=== PATIENT | male | born 1965 | race Caucasian/White ===

== ENCOUNTER 2024-04-14 09:19 | Emergency (ER) | payer MEDICAID, SELFPAY ==
[2024-04-14 10:05] VITALS: BP 159/89; PULSE 101; RESP 20; TEMP 38.3; O2SAT 96; BMI 24.5
--- NOTE | 2024-04-14 10:24 | EKG_ITS ---
[facility] Test Date: 2024-04-14 Pat Name: RENU MESSINA Department: Room: - Gender: Male [employer] Psychiatrist: : [id number] Requested By: Louise Fuchs ([facility]) [place] Order Number: [id number] Reading MD: Louise Fuchs ([facility]) [place] Measurements Intervals [place] Rate: 100 P: 80 TX: 85 QRS: 230 QRSD: 216 T: 66 QT: 447 QTc: 577 Interpretive Statements ELECTRONIC VENTRICULAR PACEMAKER ABNORMAL RHYTHM ECG No previous ECG available for comparison /[id number]
--- NOTE | 2024-04-14 10:24 | XR_ITS ---
Examination: PA chest single view TECHNIQUE: Upright PA chest single view Exam date and time: April 14, 2024 10:50 AM INDICATIONS: Dyspnea today. FINDINGS: Mild CHF Mild enlargement cardiac contour Prominent vascular congestion Septal edema at the lung bases Cardiac leads satisfactory position IMPRESSION: Mild CHF
--- NOTE | 2024-04-14 10:28 | PD.EDRME ---
Rapid Medical Screening Exam E Arrival date/time: 04/14/24 09:19 58-year-old male history of COPD, congestive heart failure presents to the emergency department with complaints of shortness of breath and bodyaches. I have greeted and performed a focused initial assessment of this patient. Initial appropriate labs ordered at this time. A comprehensive ED assessment and evaluation of the patient and analysis of all test and completion of medical decision making process will be conducted by additional ED provider. Chief Complaint: Shortness of Breath/Dyspnea Time Seen by Provider: 04/14/24 10:07 Vital signs: Vital Signs Temperature 100.9 F H 04/14/24 10:05 Pulse Rate 101 H 04/14/24 10:05 Respiratory Rate 20 04/14/24 10:05 Blood Pressure 159/89 H 04/14/24 10:05 Pulse Oximetry (%) 96 04/14/24 10:05 Oxygen Delivery Method Nasal Cannula 04/14/24 10:05 Oxygen Flow Rate 2 04/14/24 10:05
[2024-04-14 11:10] LABS: Lactate (Lactic Acid) 1.9 mMol/L (0.4-2.0)
[2024-04-14 11:15] LABS: Basophils # (Auto) 0.1 Thou/mm3 (0.0-0.2); Basophils % (Auto) 1 % (0-2.5); Eosinophils # (Auto) 0.2 Thou/mm3 (0.0-0.5); Eosinophils % (Auto) 2 % (0-10); Hematocrit 47.1 % (41.0-53.0); Hemoglobin 15.4 g/dL (13.5-16.0); Immature Granulocytes % (Auto) 0 % (0-0); Immature Granulocytes Auto 0.03 Thou/mm3 (0.00-0.00); Lymphocytes # (Auto) 0.5 Thou/mm3 (1.0-4.8); Lymphocytes % (Auto) 4 % (10-50); Mean Corpuscular HGB Conc 32.7 g/dl (31.0-37.0); Mean Corpuscular Hemoglobin 30.2 pg (25.0-35.0); Mean Corpuscular Volume 92 fL (80-100); Monocytes # (Auto) 0.5 Thou/mm3 (0.0-0.8); Monocytes % (Auto) 5 % (0-12); Neutrophils # (Auto) 10.3 Thou/mm3 (1.8-7.7); Neutrophils % (Auto) 89 % (37-80); Nucleated Red Blood Cell % 0 /100 WBC (0); Platelet Count 156 Thou/mm3 (140-440); White Blood Count 11.6 Thou/mm3 (3.8-10.6)
[2024-04-14 11:36] LABS: Partial Thromboplastin Time 26.1 Seconds (22.0-36.0); Prothrombin Time 11.2 Seconds (9.0-12.2)
[2024-04-14 11:40] LABS: B-Type Natriuretic Peptide 1207 pg/mL (0-100)
[2024-04-14 11:47] LABS: Alanine Aminotransferase 13 U/L (10-49); Albumin, Serum 4.8 gm/dL (3.5-5.0); Albumin/Globulin Ratio 1.9 (1.2-2.2); Alkaline Phosphatase 144 U/L (46-116); Anion Gap 7 (7-16); Aspartate Amino Transferase 15 U/L (0-34); BUN/Creatinine Ratio 15 Ratio (12-20); Bilirubin,Total 1.4 mg/dL (0.3-1.2); Blood Urea Nitrogen 18 mg/dL (9-23); Calcium 9.4 mg/dL (8.3-10.6); Calcium (Corrected) 9.4 mg/dL (8.5-10.1); Carbon Dioxide 27.7 mMol/L (20.0-31.0); Chloride 101 mMol/L (98-107); Creatinine (Component) 1.2 mg/dL (0.6-1.3); Estimated Creatinine Clearance 74.5 mL/min (>60); Globulin 2.5 gm/dL (2.3-3.5); Glucose 104 mg/dL (74-106); Lipase 32 U/L (12-53); Osmolality,Calculated 273 (275-295); Potassium 4.7 mMol/L (3.4-5.1); Procalcitonin 0.11 ng/ml (0.0-0.49); Sodium 136 mMol/L (136-145); Total Protein 7.3 gm/dL (5.7-8.2); Troponin I 0.028 ng/mL (0.0-0.045); eGFR > 60 See Note
--- NOTE | 2024-04-14 14:37 | PC.NURSE ---
called pt back, no answer at this time
--- NOTE | 2024-04-14 15:33 | PC.NURSE ---
called pt back, no answer at this time
--- NOTE | 2024-04-14 15:43 | PC.NURSE ---
No answer when called from triage.
== END 2024-04-14 14:37 | disposition left against medical advice (07) ==
PROVIDERS: Nurse Practitioner Primary Care; Emergency Provider Emergency Medicine; PCP Emergency Medicine
DX: J44.9 Chronic obstructive pulmonary disease, unspecified (principal); I50.9 Heart failure, unspecified; Z53.21 Procedure and treatment not carried out due to patient leaving prior to being seen by health care provider
CPT/HCPCS: 36415; 71045; 80053; 83605; 83690; 83735; 83880; 84145; 84484; 85025; 85610; 85730; 87040; 87400; 87811; 93005; 99281